=== PATIENT | female | born 1945 | race Asian ===

== ENCOUNTER 2020-08-18 13:51 | Outpatient (CLI) | payer OTHER ==
[2020-08-18 14:54] LABS: PLATELET COUNT 223 K/uL (152-353)
[2020-08-18 15:19] LABS: POTASSIUM 3.9 mmol/L (3.6-5.2)
== END 2020-08-18 19:28 | disposition home or self-care (01) ==
LOC: LAB 13:51
PROVIDERS: ATTEND Nurse Practitioner Family
DX: Z00.00 Encounter for general adult medical examination without abnormal findings (principal); B02.23 Postherpetic polyneuropathy; I10 Essential (primary) hypertension; E78.49 Other hyperlipidemia; Z79.899 Other long term (current) drug therapy; K21.9 Gastro-esophageal reflux disease without esophagitis; R53.81 Other malaise; E53.8 Deficiency of other specified B group vitamins; E55.9 Vitamin D deficiency, unspecified
CPT/HCPCS: 80053; 80061; 82306; 82607; 83036; 84439; 84443; 85027